=== PATIENT | male | born 1995 | race Hispanic/Latino ===

== ENCOUNTER 2019-10-01 02:23 | Emergency (ER) | payer BC ==
[~2019-10-01] VITALS: Ht 175.3 cm; Wt 72.6 kg
--- OUTSIDE RECORDS SUMMARY | 2019-10-01 02:26 | XMS ---
PreManage Notification: HEMALATHA LOVE Security [employer] Events No recent Security Events currently on file CRITERIA MET - PDMP CARE PROVIDERS Saúl Russell Family [facility] Current PHONE: [phone] RADHA TURNER Nurse Practitioner: Family Current PHONE: [phone] [facility] PHONE: [phone] Arian has no Care Guidelines for this patient. [employer] VISIT COUNT (12 MO.) 1 JONH Chase TOTAL 1 NOTE: Visits indicate total known visits. ED/UCC VISIT TRACKING (12 MO.) 10/01/2019 02:24 JONH Wallace OR TYPE: Emergency COMPLAINT: - SWALLOWER METAL FROM [facility] INPATIENT VISIT TRACKING (12 MO.) No inpatient visits to display in this time frame [id number]
[2019-10-01] MEDS ORDERED: ADDERALL XR 3030 MG PO (02:44)
== END 2019-10-01 04:17 | disposition home or self-care (01) ==
LOC: ED 02:23
DX: T18.9XXA Foreign body of alimentary tract, part unspecified, initial encounter (principal)
CPT/HCPCS: 70360; 71046; 99283-25